=== PATIENT | female | born 1970 | race African-American/Black ===

== ENCOUNTER → 2017-04-16 | Outpatient (CLI) | payer OTHER ==
--- NOTE | 2017-05-18 16:05 | HKNOTE ---
DATE OF SERVICE: 04/16/2017 05/18/2017 Dear Codie Rivero, Thank you for referring Morelia Chung, who was seen in the office today complaining of pain, swelling and occasional instability of the left knee. She is being referred for an MRI scan of the knee. Enclosed is a copy of my office notes for your records. Thank you for the confidence in referring her to our care. With warmest regards. Dictated By: Patrice Link MD /[email or web address] /Document#: [id number]
--- NOTE | 2017-05-19 04:35 | HKNOTE ---
DATE OF SERVICE: 04/16/2017 MAIN COMPLAINT: Pain in the left knee. HISTORY OF MAIN COMPLAINT: The patient is a 47-year-old female, who complains of pain in the left knee, which has been present for about a month. There is no history of injury, but the knee was "popping" before that. She has also had swelling of the knee for the last 6 weeks. She saw her government service executive, Codie Rivero NP, who referred her to me for further evaluation and treatment. PRESENT COMPLAINTS: The left knee occasionally locks. She has minimal pain on walking. She gets pain every day, but not with every step. Note that she hikes for several miles a day, but the knee swells after she has done her walk. The pain is mainly on the medial and posterior aspect of the knee. She finds she is most comfortable wearing sneakers. She is not taking any pain medications. She does not have any back pain. She only limps when she is in pain. PAST ORTHOPEDIC HISTORY: Previous orthopedic operations: None. PRIOR CORTISONE INTAKE: None. ALCOHOL INTAKE: None. OTHER JOINT PROBLEMS: None. PRIOR INJURIES TO HIPS AND KNEES: None. 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 PAST MEDICAL HISTORY: Negative. PAST SURGICAL HISTORY: Negative. ALLERGIES: NONE. MEDICATIONS: None. FAMILY HISTORY: Noncontributory. SYSTEMS REVIEW: Entirely negative. HABITS: The patient smokes weed. She drinks "every now and then." PHYSICAL EXAMINATION: GENERAL: On physical examination, a very fit-looking and youthful 47-year-old female. VITAL SIGNS: Height 5 foot, 5 inches. Weight 140 pounds. Blood pressure 150/70, temperature 98.5. HIP EXAMINATION: Both hips have a full range of motion without pain. KNEES: Examination of the left knee: Normal alignment. Extension is full and pain free. Flexion is full and pain free. A popliteal cyst palpable. 1+ effusion. Tender over the medial joint line. 1+ crepitus. Patella tracks normally without crepitus. IMAGING: Plain x-rays of the left knee obtained at the [facility] were reviewed (3 views). Noted is a 25 percent narrowing of the medial and lateral joint spaces. There is subchondral sclerosis, but no secondary osteoarthritic changes such as osteophytes or interosseous cyst. DISCUSSION: A 47-year-old female, who spontaneously developed pain in her left knee associated with swelling and occasional instability. These symptoms are fairly significant indicators of an internal derangement of the knee (torn meniscus). However, she has [id number] degenerative changes noted on knee x-ray. DIAGNOSES: 1. Mild degenerative osteoarthritis of the left knee. 2. Possible torn medial meniscus of the left knee. MANAGEMENT: I recommended that she allow me to give her a cortisone injection into the knee, which would help to eliminate the arthritic aspect until a full diagnosis can be made. The patient declined that course. Alternatively, I offered for her to have an MRI scan of the left knee, but she declined that as well. The patient was advised that the Bowman's cyst is unimportant. It is usually caused by pathology within the knee joint itself and resolves once the problem is taken care of. The patient will think about the treatment options, and she will call if she wishes to get an MRI of the knee or come back for a cortisone injection. Dictated By: Patrice Link MD /[email or web address] /Document#: [id number]
== END | disposition home or self-care (01) ==
LOC: HKI 15:25
DX: M25.562 Pain in left knee (principal)
CPT/HCPCS: G0463